=== PATIENT | male | born 1965 | race Native Hawaiian/Other Pacific Islander ===

== ENCOUNTER 2020-05-25 13:11 | Outpatient (CLI) | payer OTHER | END 2020-05-25 22:06 | disposition home or self-care (01) | LOC: INF 13:11 | PROVIDERS: ATTEND Internal Medicine | DX: Z23 Encounter for immunization (principal) | CPT/HCPCS: 96372 ==

== ENCOUNTER 2020-06-16 13:09 | Outpatient (CLI) | payer OTHER | END 2020-06-16 21:59 | disposition home or self-care (01) | LOC: INF | PROVIDERS: ATTEND Internal Medicine | DX: Z23 Encounter for immunization (principal) | CPT/HCPCS: 96372 ==